=== PATIENT | male | born 1985 | race Caucasian/White ===

== ENCOUNTER 2021-06-06 21:55 | Emergency (ER) | payer OTHER ==
[~2021-06-06] VITALS: Ht 165.1 cm; Wt 77.1 kg
--- NOTE | 2021-06-06 23:06 | NUR ---
BIBS C/O FEELING S/I WITH PLAN TO OD ON PILLS SEEKING VOLUNTARY ADMISSION TO [facility] [place]. PATIENT ALERT AND ORIENTED X3. AMBULATORY WITH NON LABORED BREATHING IN BED 18 AWAITING MD HOLDEN.
--- NOTE | 2021-06-06 23:14 | NUR ---
URINE COLLECTED AND SENT TO LAB
--- NOTE | 2021-06-06 23:14 | NUR ---
COVID SWAB DONE AND SENT TO LAB
[2021-06-06 23:29] LABS: BILIRUBIN,URINE NEGATIVE (NEGATIVE); COLOR,URINE YELLOW (YELLOW); LEUKOCYTE ESTERASE ,URINE NEGATIVE (NEGATIVE); NITRITE, URINE NEGATIVE (NEGATIVE); PROTEIN,URINE NEGATIVE (NEGATIVE); UGLUCOSE NEGATIVE (NEGATIVE); UROBILINOGEN,URINE 0.2 EU/dL (0.2)
[2021-06-06 23:31] LABS: BASOPHILS % (AUTO) 0.1 % (0.0-2.0); EOSINOPHILS % (AUTO) 0.2 % (0.0-6.0); HEMATOCRIT 45 % (39-51); HEMOGLOBIN 15.1 g/dL (13.5-17.5); LYMPHOCYTES # (AUTO) 0.7 K/uL (0.8-4.8); LYMPHOCYTES % (AUTO) 9.5 % (20.0-44.0); MEAN CORPUSCULAR HGB CONC 34 g/dl (31.0-36.0); MEAN CORPUSCULAR VOLUME 95 fL (80-96); MONOCYTES # (AUTO) 0.3 K/uL (0.1-1.30); MONOCYTES % (AUTO) 3.4 % (2.0-12.0); NEUTROPHILS # (AUTO) 6.4 K/uL (1.8-8.9); NEUTROPHILS % (AUTO) 86.8 % (43.0-81.0); PLATELET COUNT (AUTO) 289 K/uL (150-450); RED BLOOD CELL COUNT(AUTO) 4.74 MIL/uL (4.5-6.0); WHITE BLOOD COUNT (AUTO) 7.4 K/uL (4.3-11.0)
[2021-06-06 23:51] LABS: ALANINE AMINOTRANSFERASE 17 U/L (12-78); ALBUMIN 3.8 g/dL (3.4-5.0); ALKALINE PHOSPHATASE 94 U/L (46-116); ASPARTATE AMINOTRANSFERASE 12 U/L (15-37); BILIRUBIN,DIRECT 0.1 mg/dL (0.0-0.2); BILIRUBIN,TOTAL 0.4 mg/dL (0.2-1.0); CARBON DIOXIDE 29 mmol/L (21-32); CHLORIDE 101 mmol/L (98-107); CREATININE 1.1 mg/dL (0.6-1.3); GLUCOSE 109 mg/dL (74-106); POTASSIUM 3.8 mmol/L (3.5-5.1); SODIUM SERUM 139 mmol/L (136-145); TOTAL PROTEIN, SERUM 7.6 g/dL (6.4-8.2); UREA NITROGEN, BLOOD 7 mg/dL (7-18)
[2021-06-06 23:54] LABS: ACETAMINOPHEN < 2 ug/ml (10-30); ALCOHOL, BLOOD < 3 mg/dL (0-0)
[2021-06-06 23:56] LABS: BACTERIA,URINE None seen /HPF (None Seen); RBC,URINE 0-2 /HPF (0-2); SQUAMOUS EPITHELIAL CELL,UR Few /HPF (None Seen); WBC,URINE 0-2 /HPF (0-3)
[2021-06-06 23:57] LABS: MUCUS,URINE Moderate /LPF (None Seen)
--- NOTE | 2021-06-07 05:19 | NUR ---
ACCEPTING INFO: [facility] [id number] UNIT 1
--- NOTE | 2021-06-07 06:48 | NUR ---
Spoke w/ Juan for transport. He will call back with the ETA
--- NOTE | 2021-06-07 07:36 | NUR ---
BREAKFAST SERVED. THE PATIENT MORRIS WELL
--- NOTE | 2021-06-07 07:59 | NUR ---
REPORT GIVEN TO NURSE SERNA FROM [facility]
--- NOTE | 2021-06-07 08:00 | NUR ---
BREAKFAST PROVIDED, TOLERATED WELL
--- NOTE | 2021-06-07 10:00 | NUR ---
Pt amenable to voluntary transfer So [facility] of [facility] Cooperative/compliant w/care
--- NOTE | 2021-06-07 11:47 | NUR ---
[facility] 1300 ETA
--- NOTE | 2021-06-07 12:30 | NUR ---
[facility] Personnel here to transport patient. NO acute changes, NO distress noted. Ambulatory and cooperative during transport
[2021-06-07 14:04] VITALS: BP 125/74
== END 2021-06-07 14:09 ==
LOC: ER 22:05
DX: R45.851 Suicidal ideations (principal); F12.10 Cannabis abuse, uncomplicated; Z20.822 Contact with and (suspected) exposure to COVID-19; Z59.00 Homelessness unspecified
CPT/HCPCS: 36415; 80048; 80076; 80143; 80307; 80320; 81001; 85025; 87426; 99285; C9803; G0480

== ENCOUNTER 2021-06-28 23:28 | Emergency (ER) | payer OTHER ==
[~2021-06-28] VITALS: Ht 172.7 cm; Wt 77.1 kg
--- NOTE | 2021-06-29 01:50 | NUR ---
PATIENT BIBSELF C/O + SI WITH PLAN TO STAB SELF, GET SHOT BY REVIEW ANALYST. PATIENT IS A/O X 4, RR EVEN AND UNLABORED, NO SOB NOTED, VSS. PATIENT TAKEN TO ER BED 18. PATIENTS BELONGINGS COLLECTED AND PLACED IN LOCKER. PATIENT PLACED IN HOSPITAL GOWN. PATIENT SKIN INTACT, AMBULATES WITH STEADY GAIT. WILL CONTINUE TO MONITOR.
--- NOTE | 2021-06-29 02:00 | NUR ---
COVID SWAB COLLECTED AND SENT TO LAB
--- NOTE | 2021-06-29 02:00 | NUR ---
URINE COLLECTED SENT TO LAB
[2021-06-29 02:22] LABS: BASOPHILS % (AUTO) 0.2 % (0.0-2.0); EOSINOPHILS % (AUTO) 0.6 % (0.0-6.0); HEMATOCRIT 46 % (39-51); HEMOGLOBIN 15.8 g/dL (13.5-17.5); LYMPHOCYTES # (AUTO) 1.4 K/uL (0.8-4.8); LYMPHOCYTES % (AUTO) 20.2 % (20.0-44.0); MEAN CORPUSCULAR HGB CONC 34 g/dl (31.0-36.0); MEAN CORPUSCULAR VOLUME 93 fL (80-96); MONOCYTES # (AUTO) 0.5 K/uL (0.1-1.30); MONOCYTES % (AUTO) 6.4 % (2.0-12.0); NEUTROPHILS # (AUTO) 5.1 K/uL (1.8-8.9); NEUTROPHILS % (AUTO) 72.6 % (43.0-81.0); PLATELET COUNT (AUTO) 270 K/uL (150-450); RED BLOOD CELL COUNT(AUTO) 4.98 MIL/uL (4.5-6.0); WHITE BLOOD COUNT (AUTO) 7.1 K/uL (4.3-11.0)
[2021-06-29 02:31] LABS: CALCIUM, SERUM 9.4 mg/dL (8.5-10.1); CARBON DIOXIDE 32 mmol/L (21-32); CHLORIDE 98 mmol/L (98-107); CREATININE 1.1 mg/dL (0.6-1.3); GLUCOSE 107 mg/dL (74-106); POTASSIUM 3.8 mmol/L (3.5-5.1); SODIUM SERUM 135 mmol/L (136-145); UREA NITROGEN, BLOOD 12 mg/dL (7-18)
[2021-06-29 02:36] LABS: ACETAMINOPHEN 0 ug/ml (10-30); ALANINE AMINOTRANSFERASE 19 U/L (12-78); ALBUMIN 4.2 g/dL (3.4-5.0); ALCOHOL, BLOOD < 3 mg/dL (0-0); ALKALINE PHOSPHATASE 110 U/L (46-116); ASPARTATE AMINOTRANSFERASE 10 U/L (15-37); BILIRUBIN,DIRECT 0.1 mg/dL (0.0-0.2); BILIRUBIN,TOTAL 0.3 mg/dL (0.2-1.0); TOTAL PROTEIN, SERUM 8.2 g/dL (6.4-8.2)
[2021-06-29 03:15] LABS: BILIRUBIN,URINE NEGATIVE (NEGATIVE); COLOR,URINE YELLOW (YELLOW); LEUKOCYTE ESTERASE ,URINE NEGATIVE (NEGATIVE); NITRITE, URINE NEGATIVE (NEGATIVE); PH,URINE 6.5 (5.0-8.0); PROTEIN,URINE NEGATIVE (NEGATIVE); UGLUCOSE NEGATIVE (NEGATIVE); UROBILINOGEN,URINE 0.2 EU/dL (0.2)
--- NOTE | 2021-06-29 03:46 | NUR ---
FACESHEET AND CLINICALS FAXED TO [facility].
--- NOTE | 2021-06-29 07:49 | NUR ---
report given to Kelly hoskins clerical warehouseman.
[2021-06-29 07:56] VITALS: BP 134/71
--- NOTE | 2021-06-29 09:33 | NUR ---
[facility] AT BEDSIDE FOR PT RELATIONS DIRECTOR.
== END 2021-06-29 09:34 ==
LOC: ER 23:28
DX: R45.851 Suicidal ideations (principal); Z20.822 Contact with and (suspected) exposure to COVID-19; Z59.00 Homelessness unspecified
CPT/HCPCS: 36415; 80048; 80076; 80143; 80307; 80320; 81003; 85025; 87426; 99285; C9803; G0480

== ENCOUNTER 2021-07-20 16:57 | Emergency (ER) | payer OTHER ==
[~2021-07-20] VITALS: Ht 172.7 cm; Wt 79.4 kg
--- NOTE | 2021-07-20 16:57 | NUR ---
PT BIB SELF C/O SI "I WANT TO OD ON PILLS" REQUESTING VOLUNTARY PSYCH ADMISSION TO [facility]. PT IS AAOX4, NOT IN RESPIRATORY DISTRESS, V/S STABLE, KEPT RESTED AND COMFORTABLE. WILL CONTINUE TO MONITOR.
--- NOTE | 2021-07-20 17:05 | NUR ---
URINE SPECIMEN COLLECTED AND SENT TO LAB.
--- NOTE | 2021-07-20 17:08 | NUR ---
ER PHLEB AT BEDSIDE FOR BLOOD DRAW.
--- NOTE | 2021-07-20 17:12 | NUR ---
COVID SPECIMEN OBTAINED AND SENT TO LAB.
[2021-07-20 17:32] LABS: BASOPHILS % (AUTO) 0.5 % (0.0-2.0); HEMATOCRIT 47 % (39-51); HEMOGLOBIN 15.7 g/dL (13.5-17.5); LYMPHOCYTES % (AUTO) 14.1 % (20.0-44.0); MEAN CORPUSCULAR HGB CONC 34 g/dl (31.0-36.0); MEAN CORPUSCULAR VOLUME 95 fL (80-96); MONOCYTES # (AUTO) 0.6 K/uL (0.1-1.30); MONOCYTES % (AUTO) 8.2 % (2.0-12.0); NEUTROPHILS # (AUTO) 5.2 K/uL (1.8-8.9); NEUTROPHILS % (AUTO) 76.2 % (43.0-81.0); PLATELET COUNT (AUTO) 226 K/uL (150-450); RED BLOOD CELL COUNT(AUTO) 4.93 MIL/uL (4.5-6.0); WHITE BLOOD COUNT (AUTO) 6.8 K/uL (4.3-11.0)
[2021-07-20 17:56] LABS: CALCIUM, SERUM 9.2 mg/dL (8.5-10.1); CARBON DIOXIDE 32 mmol/L (21-32); CHLORIDE 100 mmol/L (98-107); CREATININE 1.1 mg/dL (0.6-1.3); GLUCOSE 123 mg/dL (74-106); POTASSIUM 4.3 mmol/L (3.5-5.1); SODIUM SERUM 138 mmol/L (136-145); UREA NITROGEN, BLOOD 10 mg/dL (7-18)
[2021-07-20 18:01] LABS: ALANINE AMINOTRANSFERASE 23 U/L (12-78); ALKALINE PHOSPHATASE 106 U/L (46-116); ASPARTATE AMINOTRANSFERASE 19 U/L (15-37); BILIRUBIN,DIRECT 0.1 mg/dL (0.0-0.2); BILIRUBIN,TOTAL 0.3 mg/dL (0.2-1.0)
[2021-07-20 18:03] LABS: ACETAMINOPHEN 0 ug/ml (10-30); ALCOHOL, BLOOD < 3 mg/dL (0-0)
[2021-07-20 18:17] LABS: BILIRUBIN,URINE NEGATIVE (NEGATIVE); COLOR,URINE YELLOW (YELLOW); LEUKOCYTE ESTERASE ,URINE NEGATIVE (NEGATIVE); NITRITE, URINE NEGATIVE (NEGATIVE); PH,URINE 8.5 (5.0-8.0); PROTEIN,URINE NEGATIVE (NEGATIVE); UGLUCOSE NEGATIVE (NEGATIVE); UROBILINOGEN,URINE 0.2 EU/dL (0.2)
--- NOTE | 2021-07-20 19:08 | NUR ---
FAXED CLINICALS TO [facility]
--- NOTE | 2021-07-20 21:28 | NUR ---
CLINICALS FAXED AGAIN
--- NOTE | 2021-07-21 00:35 | NUR ---
PT SLEEPING. IN NO ACUTE DISTRESS AT THIS TIME. VSS. ALL NEEDS MET. SAFETY MEASURES CONTINUED.
--- NOTE | 2021-07-21 02:20 | NUR ---
PT IS ACCEPTED AT [facility] UNDER THE CARE OF DR. HANCOCK. CALL [phone]. PT WILL BE ACCOMODATED FOR ADMISSION AT 1500.
--- NOTE | 2021-07-21 07:28 | NUR ---
ASSESSED PT ON BED ASLEEP EASILY AROUSABLE, AAOX4, NOT IN RESPIRATORY DISTRESS, V/S STABLE, KEPT RESTED AND COMFORTABLE. WILL CONTINUE TO MONITOR.
--- NOTE | 2021-07-21 07:30 | NUR ---
BREAKFAST TRAY APPLIED.
--- NOTE | 2021-07-21 14:06 | NUR ---
PER [facility] OF ADMITTING OF [facility], RUBBER LINER WILL BE AT 1800
--- NOTE | 2021-07-21 14:08 | NUR ---
NUMBER TO GIVE REPORT [phone] UNIT 2
--- NOTE | 2021-07-21 14:28 | NUR ---
ATTEMPTED TO GIVE REPORT, NO ANSWER, WILL CALL AGAIN
--- NOTE | 2021-07-21 16:09 | NUR ---
[facility] CALLED FOR TRANSPORT ETA 30 MINS PER ROQUE.
--- NOTE | 2021-07-21 16:17 | NUR ---
REPORT GIVEN TO [place] [facility] [place]
[2021-07-21 17:05] VITALS: BP 128/77
--- NOTE | 2021-07-21 17:09 | NUR ---
REPORT GIVEN TO EMT FOR PT TRANSFER TO [facility].
== END 2021-07-21 17:13 ==
LOC: ER 17:01
DX: R45.851 Suicidal ideations (principal); Z59.00 Homelessness unspecified; F41.9 Anxiety disorder, unspecified; Z20.822 Contact with and (suspected) exposure to COVID-19
CPT/HCPCS: 36415; 80048; 80076; 80143; 80307; 80320; 81003; 85025; 87426; 99285; C9803; G0480

== ENCOUNTER 2021-07-30 23:41 | Emergency (ER) | payer OTHER ==
[~2021-07-30] VITALS: Ht 172.7 cm; Wt 79.4 kg
--- NOTE | 2021-07-31 00:10 | NUR ---
BIBS TO ER BED 18. AAOX4. NOT IN RESP DISTRESS. AMBULATORY. CAME IN FOR SUICIDAL IDEATION W/ PLANS TO "GET SHOT BY A SKETCH ARTIST" DENIES HOMICIDAL IDEATION. PT IS SEEKING VOLUNTARY ADMISSION. PT IS GOWN, BELONGINGS IN LOCKER AND SITTER WITHIN SIGHT. AWAITING MD FOR EVAL.
--- NOTE | 2021-07-31 00:16 | NUR ---
COVID SWAB COLLECTED AND SENT TO LAB.
--- NOTE | 2021-07-31 00:16 | NUR ---
URINE SPECIMEN COLLECTED AND SENT TO LAB.
[2021-07-31 00:44] LABS: BASOPHILS % (AUTO) 0.6 % (0.0-2.0); EOSINOPHILS % (AUTO) 1.4 % (0.0-6.0); HEMATOCRIT 43 % (39-51); HEMOGLOBIN 14.5 g/dL (13.5-17.5); LYMPHOCYTES # (AUTO) 1.6 K/uL (0.8-4.8); LYMPHOCYTES % (AUTO) 23.5 % (20.0-44.0); MEAN CORPUSCULAR HGB CONC 34 g/dl (31.0-36.0); MEAN CORPUSCULAR VOLUME 94 fL (80-96); MONOCYTES # (AUTO) 0.6 K/uL (0.1-1.30); MONOCYTES % (AUTO) 9.5 % (2.0-12.0); NEUTROPHILS # (AUTO) 4.4 K/uL (1.8-8.9); PLATELET COUNT (AUTO) 272 K/uL (150-450); RED BLOOD CELL COUNT(AUTO) 4.59 MIL/uL (4.5-6.0); WHITE BLOOD COUNT (AUTO) 6.7 K/uL (4.3-11.0)
[2021-07-31 00:45] LABS: BILIRUBIN,URINE NEGATIVE (NEGATIVE); COLOR,URINE YELLOW (YELLOW); LEUKOCYTE ESTERASE ,URINE NEGATIVE (NEGATIVE); NITRITE, URINE NEGATIVE (NEGATIVE); PROTEIN,URINE NEGATIVE (NEGATIVE); UGLUCOSE NEGATIVE (NEGATIVE); UROBILINOGEN,URINE 0.2 EU/dL (0.2)
[2021-07-31 01:04] LABS: CARBON DIOXIDE 31 mmol/L (21-32); CHLORIDE 102 mmol/L (98-107); CREATININE 1.1 mg/dL (0.6-1.3); GLUCOSE 93 mg/dL (74-106); POTASSIUM 3.8 mmol/L (3.5-5.1); SODIUM SERUM 138 mmol/L (136-145); UREA NITROGEN, BLOOD 11 mg/dL (7-18)
[2021-07-31 01:10] LABS: ALANINE AMINOTRANSFERASE 22 U/L (12-78); ALBUMIN 3.8 g/dL (3.4-5.0); ALKALINE PHOSPHATASE 113 U/L (46-116); ASPARTATE AMINOTRANSFERASE 17 U/L (15-37); BILIRUBIN,DIRECT 0.1 mg/dL (0.0-0.2); BILIRUBIN,TOTAL 0.3 mg/dL (0.2-1.0); TOTAL PROTEIN, SERUM 7.4 g/dL (6.4-8.2)
[2021-07-31 01:12] LABS: ACETAMINOPHEN < 2 ug/ml (10-30); ALCOHOL, BLOOD < 3 mg/dL (0-0)
--- NOTE | 2021-07-31 02:51 | NUR ---
CLINICALS FAXED TO [facility]
--- NOTE | 2021-07-31 07:24 | NUR ---
UPDATED CLINICALS SENT TO [facility] PER THEIR REQUEST.
[2021-07-31 08:06] VITALS: BP 137/85
--- NOTE | 2021-07-31 08:37 | NUR ---
CONTACTED ALECIA JEFF
--- NOTE | 2021-07-31 09:39 | NUR ---
Pt. accepted to [facility] under Dr. Aparicio. Call and report to Unit 2 [[phone] ext. [phone]].
--- NOTE | 2021-07-31 09:53 | NUR ---
[facility] CALLED FOR TRANSPORT ETA 30 MINS.
--- NOTE | 2021-07-31 10:26 | NUR ---
REPORT GIVEN TO AMBULANCE STAFF
--- NOTE | 2021-07-31 10:27 | NUR ---
REPORT GIVEN TO NURSE WATERS FROM [facility].
--- NOTE | 2021-07-31 10:30 | NUR ---
THE PATIENT IS TRANSFERED TO [facility] IN [place] VIA ARRANGED TRANSPO
== END 2021-07-31 11:14 ==
LOC: ER 23:42
DX: R45.851 Suicidal ideations (principal); Z59.00 Homelessness unspecified; F32.A Depression, unspecified; Z20.822 Contact with and (suspected) exposure to COVID-19
CPT/HCPCS: 36415; 80048; 80076; 80143; 80307; 80320; 81003; 85025; 87426; 99285; C9803; G0480

== ENCOUNTER 2021-11-07 04:20 | Emergency (ER) | payer OTHER ==
[~2021-11-07] VITALS: Ht 172.7 cm; Wt 83.9 kg
[2021-11-07 05:00] VITALS: BP 131/88
--- NOTE | 2021-11-07 05:01 | NUR ---
PRESENTED TO THE ER FOR C/O SI, PLANNING TO OD ON HIS MEDICATION REQUESTING COLUNTARY PSYCH ADMISSSION. A, OX4. AMBULATORY WITH STEADY GAITS TO THE BATHROOM. URINE SAMLE OBTAINED. COVID SWAB DONE AND SENT TO THE LAB. PATIENT WAS GOWNED UP. BELONGING TAKEN AWAY. SECURITY WAS CALLED TO WAND THE PT AND PT WAS PLACED ON SI PRECAUTION. WILL CONT TO MONITOR
[2021-11-07 05:51] LABS: BASOPHILS % (AUTO) 0.3 % (0.0-2.0); EOSINOPHILS % (AUTO) 0.3 % (0.0-6.0); HEMATOCRIT 46 % (39-51); HEMOGLOBIN 14.9 g/dL (13.5-17.5); LYMPHOCYTES # (AUTO) 1.3 K/uL (0.8-4.8); LYMPHOCYTES % (AUTO) 16.4 % (20.0-44.0); MEAN CORPUSCULAR HGB CONC 33 g/dl (31.0-36.0); MEAN CORPUSCULAR VOLUME 93 fL (80-96); MONOCYTES # (AUTO) 0.5 K/uL (0.1-1.30); NEUTROPHILS # (AUTO) 5.9 K/uL (1.8-8.9); PLATELET COUNT (AUTO) 279 K/uL (150-450); RED BLOOD CELL COUNT(AUTO) 4.97 MIL/uL (4.5-6.0); WHITE BLOOD COUNT (AUTO) 7.7 K/uL (4.3-11.0)
[2021-11-07 06:53] LABS: CALCIUM, SERUM 9.6 mg/dL (8.5-10.1); CARBON DIOXIDE 29 mmol/L (21-32); CHLORIDE 100 mmol/L (98-107); CREATININE 1.4 mg/dL (0.6-1.3); GLUCOSE 111 mg/dL (74-106); SODIUM SERUM 140 mmol/L (136-145); UREA NITROGEN, BLOOD 17 mg/dL (7-18)
[2021-11-07 07:10] LABS: BILIRUBIN,URINE NEGATIVE (NEGATIVE); COLOR,URINE YELLOW (YELLOW); LEUKOCYTE ESTERASE ,URINE NEGATIVE (NEGATIVE); NITRITE, URINE NEGATIVE (NEGATIVE); PROTEIN,URINE NEGATIVE (NEGATIVE); UGLUCOSE NEGATIVE (NEGATIVE); UROBILINOGEN,URINE 0.2 EU/dL (0.2)
[2021-11-07 08:40] LABS: BILIRUBIN,TOTAL 0.1 mg/dL (0.2-1.0)
[2021-11-07 08:41] LABS: ALANINE AMINOTRANSFERASE 31 U/L (12-78); ALBUMIN 4.1 g/dL (3.4-5.0); ALKALINE PHOSPHATASE 96 U/L (46-116); ASPARTATE AMINOTRANSFERASE 5 U/L (15-37); BILIRUBIN,DIRECT 0.1 mg/dL (0.0-0.2); TOTAL PROTEIN, SERUM 8.2 g/dL (6.4-8.2)
[2021-11-07 08:42] LABS: ACETAMINOPHEN < 10 ug/ml (10-30); ALCOHOL, BLOOD < 3 mg/dL (0-0)
--- NOTE | 2021-11-07 09:00 | NUR ---
[facility]
--- NOTE | 2021-11-07 11:10 | NUR ---
ACCEPTED AT [facility] UNDER DR HERNANDEZ # REPORT [phone] TRANSPORT ETA 1140
--- NOTE | 2021-11-07 11:20 | NUR ---
REPORT GIVEN TO NURSING MACHINIST MECHANIC EZEKIEL.
--- NOTE | 2021-11-07 12:20 | NUR ---
TRANSPORTED TO [facility] STABLE CONDITION.
== END 2021-11-07 12:22 ==
LOC: ER 04:28
DX: R45.851 Suicidal ideations (principal); F12.10 Cannabis abuse, uncomplicated; F41.9 Anxiety disorder, unspecified; R03.0 Elevated blood-pressure reading, without diagnosis of hypertension; Z20.822 Contact with and (suspected) exposure to COVID-19
CPT/HCPCS: 99285; 85025; 80048; 80076; 81003; 36415; 87426; 80143; 80320; 80307; C9803; G0480

== ENCOUNTER 2022-01-10 02:01 | Emergency (ER) | payer OTHER ==
[~2022-01-10] VITALS: Ht 172.7 cm; Wt 81.6 kg
--- NOTE | 2022-01-10 02:33 | NUR ---
JOHNY C/O SI WITH OUT PLAN. DEPRESSED AND REQUESTING VOLUNTARY PSYCH ADMISSION. PT CHANGED INTO A GOWN AND BELONGINGS COLLECTED. WANDED BY SECURITY. URINE AND COVID COLLECTED AND SENT TO LAB. SAFETY MEASURES IN PLACE.
[2022-01-10 03:38] LABS: BASOPHILS % (AUTO) 0.3 % (0.0-2.0); EOSINOPHILS % (AUTO) 1.7 % (0.0-6.0); HEMATOCRIT 44 % (39-51); HEMOGLOBIN 14.8 g/dL (13.5-17.5); LYMPHOCYTES # (AUTO) 1.3 K/uL (0.8-4.8); LYMPHOCYTES % (AUTO) 24.3 % (20.0-44.0); MEAN CORPUSCULAR HGB CONC 33 g/dl (31.0-36.0); MEAN CORPUSCULAR VOLUME 90 fL (80-96); MONOCYTES # (AUTO) 0.4 K/uL (0.1-1.30); MONOCYTES % (AUTO) 8.4 % (2.0-12.0); NEUTROPHILS # (AUTO) 3.4 K/uL (1.8-8.9); NEUTROPHILS % (AUTO) 65.3 % (43.0-81.0); PLATELET COUNT (AUTO) 270 K/uL (150-450); RED BLOOD CELL COUNT(AUTO) 4.94 MIL/uL (4.5-6.0); WHITE BLOOD COUNT (AUTO) 5.2 K/uL (4.3-11.0)
[2022-01-10 03:42] LABS: CARBON DIOXIDE 31 mmol/L (21-32); CHLORIDE 101 mmol/L (98-107); CREATININE 1.1 mg/dL (0.6-1.3); GLUCOSE 99 mg/dL (74-106); SODIUM SERUM 141 mmol/L (136-145); UREA NITROGEN, BLOOD 12 mg/dL (7-18)
[2022-01-10 03:49] LABS: ALANINE AMINOTRANSFERASE 25 U/L (12-78); ALBUMIN 3.9 g/dL (3.4-5.0); ALCOHOL, BLOOD < 3 mg/dL (0-0); ALKALINE PHOSPHATASE 105 U/L (46-116); ASPARTATE AMINOTRANSFERASE 24 U/L (15-37); BILIRUBIN,DIRECT 0.1 mg/dL (0.0-0.2); BILIRUBIN,TOTAL 0.5 mg/dL (0.2-1.0)
[2022-01-10 03:51] LABS: ACETAMINOPHEN < 10 ug/ml (10-30)
[2022-01-10 04:02] LABS: BILIRUBIN,URINE NEGATIVE (NEGATIVE); COLOR,URINE YELLOW (YELLOW); LEUKOCYTE ESTERASE ,URINE NEGATIVE (NEGATIVE); NITRITE, URINE NEGATIVE (NEGATIVE); PH,URINE 6.5 (5.0-8.0); PROTEIN,URINE NEGATIVE (NEGATIVE); UGLUCOSE NEGATIVE (NEGATIVE)
--- NOTE | 2022-01-10 04:38 | NUR ---
FACESHEET AND CLINICALS FAXED TO [facility].
--- NOTE | 2022-01-10 14:02 | NUR ---
SPOKE WITH WILLY LANDA ACCEPTED TO [facility] [place] UNDER DR MORA NUMBER FOR REPORT [phone]
--- NOTE | 2022-01-10 14:02 | NUR ---
Cathy pena in ED - 01/10/22 at 1405 by YANELY SPOKE WITH WILLY LANDA ACCEPTED TO [facility] UNDER DR MORA NUMBER FOR REPORT [phone]
--- NOTE | 2022-01-10 14:02 | NUR ---
WILLY STATED HE WILL CALL US UP WITH PHLEBOTOMY MANAGER INFO OR LET US KNOW IF HE WOULD LIKE US TO SET UP TRANSPORTATION
--- NOTE | 2022-01-10 14:04 | NUR ---
PT WILL BE DEVELOPMENTAL WRITING INSTRUCTOR [id number] PER WILLY
--- NOTE | 2022-01-10 14:22 | NUR ---
PT IS REQUESTING TO BE DISCHARGED STATED THAT HE IS FINE AND WANTED TO GO HOME . MADE AWARE
[2022-01-10 15:29] VITALS: BP 132/84
--- NOTE | 2022-01-10 15:29 | NUR ---
Patient discharged to home in stable condition. Written and verbal after care instructions given. Patient verbalizes understanding of instruction.
== END 2022-01-10 15:29 | disposition home or self-care (01) ==
LOC: ER 02:03
DX: F32.A Depression, unspecified (principal); Z20.822 Contact with and (suspected) exposure to COVID-19; F41.9 Anxiety disorder, unspecified; R03.0 Elevated blood-pressure reading, without diagnosis of hypertension
CPT/HCPCS: 99285; 85025; 80048; 80076; 81003; 36415; 87426; 80143; 80320; 80307; C9803; G0480